=== PATIENT | female | born 1950 | race American Indian/Alaskan Native ===

== ENCOUNTER 2016-10-27 15:48 | Inpatient (IN) | payer MEDICARE, OTHER ==
[~2016-10-27] VITALS: Ht 162.6 cm; Wt 104.3 kg
[~2016-10-27 15:48] MED LIST: CAL-CITRATE PL1 EACH PO; DIALYVITE V5000 UNIT PO; FLONASE2 SPRAY NS; GLUCOPHAGE500 MG PO; IBUPROFEN800 MG PO; KEFLEX500 MG PO; LISINOPRIL10 MG PO; LORATADINE10 MG PO; METFORMIN HCL500 MG PO; NORCO 5-325 TA1 EACH PO; OMEPRAZOLE20 MG PO; OXYCODONE HCL5 MG PO; PYRIDIUM200 MG PO; SALSALATE750 MG PO; SIMVASTATIN10 MG PO; VALIUM5 MG PO
[2016-11-02] MEDS ORDERED: MULTIVITAMINS1 EAC7 PO (16:10)
[2016-11-02] MEDS ORDERED: LISINOPRIL20 MG PO (16:10)
--- NOTE | 2016-11-06 17:37 | NUR ---
PREADMIT PT CARE NOTE THIS IS A 66 YEAR OLD FEMALE PT SCHEDULED FOR A LEFT TOTAL KNEE ON 11/16/[address] MARYJO TRAVIS. PT STATES SHE LIVES IN AN UPSTAIRS APARTMENT WITH A FULL FLIGHT OF STAIRS TO GO INTO HOME. SHE LIVES WITH HER SON. STATES SHE HAS A TUB/SHOWER COMBINATION WITH A SHOWER SEAT. ALSO STATES SHE DOES NOT HAVE A FRONT WHEELED WALKER AND WOULD LIKE US TO OBTAIN ONE FOR HER WHILE SHE IS HERE. SHE HAS ALREADY MET WITH OP PT AT [facility] AND HAS AN APPT FOR WHEN SHE IS HOME FROM THE HOSPITAL ALREADY. DENIES FURTHER QUESTIONS. WILL FOLLOW PT WHILE SHE IS IN THE HOSPITAL. SYLVIA BOY'S ADVISER PLANNING CASE MANAGEMENT
[2016-11-16] MEDS ORDERED: OXYBUTYNIN CHLOR5 MG PO (06:05)
[2016-11-16] MEDS ORDERED: CEPHALEXIN250 MG PO (06:07)
--- NOTE | 2016-11-16 08:54 | NUR ---
11/16/16 0854 [facility],[place] O2 DECREASED TO 6L.
--- NOTE | 2016-11-16 09:45 | NUR ---
PATIENT TO FLOOR VIA HOSPITAL BED. REPORT RECEIVED FROM PACU NURSE SUNDEEP. PATIENT DENIED PAIN AND NAUSEA. REPORT NUMBNESS AND TINGLING IN THE LOWER EXTREMITIES. MEPILEX AND TERELL WRAP DRESSING ON LEFT KNEE D/C/I. CRYO CUFF ON. CELI HOSE, SCD AND HEEL PROTECTOR ON. VS TAKEN AND WNL. IV SITE PATENT AND NO SIGNS OF INFILTRATION. FLUID INFUSING WELL. PATIENT ORIENTED TO ROOM, CALL LIGHT AND PERSONAL BELONGINGS WITHIN PATIENT REACH. PULSE OX IN PLACE. WILL CONTINUE TO MONITOR.
--- NOTE | 2016-11-16 10:32 | NUR ---
PATIENT RESTING IN BED. NO COMPLAINT AT THIS TIME. REPORTED BEING DROWZY AND SLEEPY. DRESSING ON LEFT KNEE D/C/I.
[2016-11-16] MEDS ORDERED: OXYBUTYNIN CHLOR5 M1 PO (10:48)
--- NOTE | 2016-11-16 11:50 | NUR ---
PATIENT RESTING IN BED DENIES PAIN AT THIS TIME. TOLERATED CLEAR LIQUID WELL. DENIES TINGLING AND NUMBNESS SENSATION IN THE LOWER EXTREMITIES AT THIS TIME. WILL CONTINUE TO MONITOR. VS WNL.
--- NOTE | 2016-11-16 12:55 | NUR ---
PATIENT WAS UP WITH PHYSICAL THERAPIST. WALKED TO BATHROOM AND BACK TO BED WITH NO DIFFICULTY. PATIENT REPORTS NAUSEA AND SHE WAS MEDICATED. PATIENT DENIES ANY PAIN AT THIS TIME. DRESSING DRY AND CLEAN. FULL SENSATION RETURN ON LOWER EXTREMITIES. PATIENT VOIDED. HAD SOME JUICE, JELLO AND BROTH. TOLERATED THAT WELL. WILL CONTINUE TO MONITOR.
--- NOTE | 2016-11-16 13:15 | NUR ---
PATIENT RESTING IN BED DENIED PAIN, NAUSEA. PATIENT REPORTED THAT SHE IS ABLE TO FEEL HER LOWER EXTREMITIES. FULL SENSATION. ON 2L O2 VIA NC. NO APPARENT DISTRESS.
--- NOTE | 2016-11-16 15:04 | NUR ---
INTRODUCED TO NURSE, TAKING OVER CARE OF PATIENT FOR THE REST OF SHIFT. PATIENT DENIES PAIN, DENIES NAUSEA. LEFT KNEE DRESSING IS CDI, ICE FILLED IN KRYO CUFF. ANCEF AND TORADOL GIVEN. PATIENT ENDORSES ITCHING AND NUBAIN 10MG GIVEN SUB Q. SOUP ORDERED FOR PATIENT FOR DINNER.
--- NOTE | 2016-11-16 15:23 | NUR ---
Medications reconciled by pharmacist using pharmacy records and through patient interview
--- NOTE | 2016-11-16 18:33 | NUR ---
PATIENT HAS DONE WELL TODAY, AMBULATED WITH P.T. AND VOIDED. LATER THIS AFTERNOON, NOTED THAT PATIENT WAS JUAN TO 39. STAT EKG DONE, PATIENT PLACED ON TELE #1. IVF CONTINUED. PATIENT HAS VARIABLE PULSE FROM [address] TRAVIS NOTIFIED.
--- NOTE | 2016-11-16 19:13 | NUR ---
CALL TO DR. TRAVIS TO LET HIM KNOW THAT PATIENT IS BRADYCARDIC, ON TELE, IVF CONTINUED.
--- NOTE | 2016-11-16 20:20 | NUR ---
IN TO CHECK ON PT, PT SLEEPING. AWAKES TO VOICE AND TOUCH. ASSESSMENT DONE. CMS INTACT. TEDS, CRYO, SCDS IN PLACE. DRSG CLEAN DRY AND INTACT. NO SHADOWING NOTED. PT C/O CONTINUED ITCHING AROUND UMBILICUS AND ON LEGS. PT REQUEST MEDICATION. DR. COTTER NOTIFIED. NEW MEDICATION ORDER GIVEN. FRESH ICE WATER AND ORANGE JUICE GIVEN. NO FURTHER NEEDS, CALL LIGHT WITHIN REACH.
--- NOTE | 2016-11-16 21:09 | EKG ---
[facility] [address] [facility] [place], [place] [address] Signed Marked sinus bradycardia Left axis deviation Low voltage QRS T wave abnormality, consider lateral ischemia Abnormal ECG No previous ECGs available Confirmed by MEDINA OLGUIN MD ([id number]) on 11/16/2016 9:09:11 PM Electronically Signed By: MEDINA OLGUIN MD 11/16/16 2109 PATIENT NAME: ABDIRASHID DICK Electrocardiogram DATE OF : 46 PHYSICIAN: MEDINA OLGUIN MD REPORT #: [id number] REPORT IS CONFIDENTIAL AND NOT TO BE RELEASED WITHOUT AUTHORIZATION
--- NOTE | 2016-11-16 22:30 | NUR ---
IN TO CHECK ON PT, AWAKE, ALERT AND PLEASENT. PT RATES HER PAIN A 0/10 PAIN. PT UP TO [facility] WITH WALKER AND 2 PERSON ASSIST. EDUCATED PT ON LIMITING BENDING/MOVEMENT OF L KNEE TO PRVENT INCREASED PAIN. PT ASSISTED BACK TO BED. CRYO, SCDS,TEDS AND HEEL PROTECTORS IN PLACE. FRESH WATER GIVEN. CALL LIGHT WITHIN REACH.
--- NOTE | 2016-11-16 23:42 | NUR ---
IN TO PT'S ROOM TO START ABX. PT RATES PAIN A 0/10, BUT STATES SHE IS "STARTING TO FEEL HER LEG". PT SLEEPING , BUT WAKES TO VOICE. DRSG CLEAN, DRY AND INTACT. PT STATES THAT THE ITCHING "IS MUCH BETTER". DENIES NAUSEA. SCDS,CRYO,TEDS AND HEEL PROTECTORS IN PLACE. WATER AND CALL LIGHT WITHIN REACH.
--- NOTE | 2016-11-17 02:52 | NUR ---
IN TO CHANGE IVF, PT SLEEPING. AWAKENS TO SOUND. PT RATES HER PAIN OF 0/10. DENIES NAUSEA. NO FURTHER NEEDS. CRYO, TEDS, SCDS AND HEEL PROTECTORS IN PLACE. CALL LIGHT WITHIN REACH.
--- NOTE | 2016-11-17 03:27 | NUR ---
IN TO CHECK ON PT, CONT PULSE OX REPLACED. PT SLEEPING, EASILY AWAKENS TO VOICE. PT CURRENTLY RATES HER PAIN 1/10 IN HER L THIGH. DISCUSSED LAST SCHEDULE MEDICATION GIVEN AT 0200, WILL REASSESS AT 0400 PAIN AND GIVE PRN IF PAIN CONTINUES. PT AGREES. CRYO, TEDS, SCDS AND HEEL PROTECTORS IN PLACE. WATER AND CALL LIGHT WITHIN REACH.
--- NOTE | 2016-11-17 03:44 | NUR ---
PT UP TO [facility] WITH 2 PERSON ASSIST AND WALKER. PT AWAKE AND ALERT. TRANSFER WELL. ASSITED BACK TO BED. O2, TELE AND PULSE OX IN PLACE. IS DONE X 10 IN THE PRESENTS OF RN. PT TOLERATED WELL. O2 NOTED TO BE DOWN TO 88% WHEN BACK FROM BSC. O2 INCREASED TO 3L. CRYO CUFF REFILL. SCDS, TEDS AND HEEL PROTECTORS IN PLACE. CALL LIGHT WITHIN REACH.
--- NOTE | 2016-11-17 03:59 | NUR ---
DR. OLGUIN NOTIFIED OF BRADYCARDIA DOWN TO 34 AND O2 SAT DOWN TO 88 ON 2L. ADVISED THAT PT WAS UP TO B[facility], HR UP TO 69-70. PT ASYMPTOMATIC. NO NEW ORDERS GIVEN. WILL CONTINUE TO MONITOR PT.
--- NOTE | 2016-11-17 04:04 | NUR ---
PT NOTED TO BE IMPULSIVE WITH MOVEMENT OF POST OPERATIVE LEG. PT EDUCATED SEVERAL TIMES DURING THE SHIFT TO MAKE SURE TO SLOW DOWN AND ALLOW STAFF TO ASSIST WITH MOVEMENT OF OPERATIVE LIMB TO HELP DECREASE POST OPERATIVE PAIN IN THE FUTURE. PT UNDERSTANDS TEACHING AND FOLLOWS DIRECTION APPROPRIATLY. CONTINUE TO REINFORCE.
--- NOTE | 2016-11-17 04:38 | NUR ---
PT HAS RESTED WELL THROUGHOUT THE SHIFT. AWAKENS TO VOICE. PT IS ALERT, ORIENTED AND PLEASANT. HAS RATED PAIN A 0-1/10 THROUGHOUT SHIFT. SCHEDULED OXYCODONE AND TORADOL GIVEN. PT HAS BEEN BRADYCARDIC THROUGHOUT THE SHIFT, OCCASSIONLY DOWN TO THE LOW 30'S. PT ON TELE 1 WITH CONTINOUS PULSE OX. O2 DESATURATION DOWN TO 88 %, O2 INCREASED TO 3L. PT WOKE AND ASSISTED UP TO BSC. PULSE AND O2 RECOVERED, DR. OLGUIN NOTIFIED. IV INFUSING. IS AT BEDSIDE. CRYO, TEDS, SCDS AND HEEL PROTECTORS IN PLACE. PT TOLERATING CLEAR LIQUID DIET WITH NO NAUSEA.
--- NOTE | 2016-11-17 05:46 | NUR ---
CALL TO DR. TRAVIS TO UPDATE ON SHIFT. NOTIFIED THAT PULSE HAS BEEN LOW 30'S-40'S. NOTIFIED OF DESATURATION AND O2 CURRENTLY AT 3L. ADVISED THAT DR. OLGUIN WAS NOTIFIED AND NO NEW ORDERS WERE GIVEN.
--- NOTE | 2016-11-17 07:56 | NUR ---
MORNING ASSESSMENT AND SCHEDULED MEDICATIONS GIVEN. PATIENT CONTINUES TO DENY PAIN IN LEFT LEG. PATIENT HAS GOOD APPETITE AND IS SITTING UP TO EAT BREAKFAST. O2 AT 3L FOR 93%, EX WHEEZE NOTED IN LLL. LEFT KNEE DRESSING IS CDI, CMS INTACT. CRYO CUFF HAS FRESH ICE. IVF CONTINUED, PENDING HEART RATE/BP REVIEW WITH PHYSICIAN.
--- NOTE | 2016-11-17 08:34 | OR ---
[facility] [address] [place], [place] [address] Signed DATE OF PROCEDURE: 11/16/16 PREOPERATIVE DIAGNOSIS: Degenerative joint disease, left knee. POSTOPERATIVE DIAGNOSIS: Degenerative joint disease, left knee. PROCEDURE PERFORMED: Left total knee arthroplasty with computer navigations. MARKETING PROJECT SPECIALIST Prudence Brasher PA-C and CHIKA Copeland. Prudence was present for the entire procedure and was necessary in critical positioning, retraction, wound closure, and dressing application. ANESTHESIA: Spinal. BLOOD LOSS: Minimal. TOURNIQUET TIME: 60 minutes. IMPLANTS Nathanael triathlon size 5 and a 13 mm polyethylene, 35 mm patella. BRIEF HISTORY Chelo is a 66-year-old female with progressive worsening of her arthritis. We tried nonoperative treatment without substantial relief. She wished to proceed with total k nee. Risks and benefits of operative treatment discussed with her and she elected to proceed. DESCRIPTION OF PROCEDURE Once consent was obtained, she was taken to the operating room. After adequate anesthesia, she was placed on operating room table. All d ownside pressure points well padded. A well-padded proximal thigh tourniquet was placed and a hip bump was placed. The leg was prepped and draped in standard sterile fashion, exsanguinated using Esmarch bandage. Tourniquet inflated to 250 mmHg. Standard a n terior approach through curved incision was taken through skin and subcutaneous tissue. Median parapatellar arthrotomy was performed. The infrapatellar fat pad was excised and the insoles of a sleeve around the posterior medial corner. The knee was flexed. The anterior edge of the meniscus were transected as was the ACL. The PCL was intact. The navigation guide was pinned to the distal femur and the femur was registered with the computer. The distal femoral cutting guide was then pinned in neutral alignment and the distal femoral cut was made. The distal femur was sized to a 5. The AP cutting block was pinned in neutral alignment Electronically Signed By: CIERRA TUCKER MD 11/17/16 0834 PATIENT NAME: CHELO DICK OPERATIVE REPORT DATE OF : 46 PHYSICIAN: CIERRA TUCKER MD REPORT #: [id number] REPORT IS CONFIDENTIAL AND NOT TO BE RELEASED WITHOUT AUTHORIZATION [facility] [address] [place], [place] [address] Signed with epicondylar axis. The anterior, posterior, and chamfer cuts were made. The osteophytes were removed. The attention was then turned to the tibia and the navigation guide was pinned. The proximal tibia and the tibia was registered with the computer. The cutting block was then pinned in neutral alignment once again and the cut was made with care taken to protect the patellar tendon and MCL. Bone was excised as well as any meniscal remnants. Posterior release was performed and posterior osteophytes were removed off the femur. The flexion-extension gaps were sized and found to be symmetric at 13 mm. The trials were positioned. She was taken through range of motion and found to be stable. The patella was cut sized and drilled for 35 patella. The femoral lug holes were drilled and the trials were removed. Proximal tibia was finished using the keel punch. The bone surfaces were pulse lavaged, packed with a dry Ray-Gabby. The cement was mixed. When it reached proper consistency, placed all implants on all bone surfaces. Tibia was impacted into position first and followed by polyethylene. All excess cement was removed. The femur was impacted, and again all excess cement was removed. The knee was extended and nicely loaded. Patella was clamped, and the remaining cement was removed. The knee was pulse lavaged at intervals. A total of 3 L of antibiotic irrigation was used. The periarticular soft tissues were injected with 100 mL ropivacaine and Toradol mixture. The arthrotomy was then closed using combination of #1 Vicryl and #1 Stratafix, subcutaneous tissue with 0 Stratafix, skin with 2-0 Quill and Dermabond mesh. She tolerated the procedure well. All sponge, needle, instrument counts were correct. The knee was dressed with a Mepilex Ag dressing, ABD and Erick wrap. She was awakened and taken to recovery in satisfactory condition. All sponge, needle, and instrument counts were correct. Cierra Tucker MD BA/Modl /[id number] cc: MIAH Del Toro Electronically Signed By: CIERRA TUCKER MD 11/17/16 0834 PATIENT NAME: CHELO DICK OPERATIVE REPORT DATE OF : 46 PHYSICIAN: CIERRA TUCKER MD REPORT #: [id number] REPORT IS CONFIDENTIAL AND NOT TO BE RELEASED WITHOUT AUTHORIZATION
--- NOTE | 2016-11-17 09:29 | NUR ---
PT UP TO CHAIR WITH PROFESSIONAL ENGINEER AND FWW. PT DENIES PAIN. DRINKING MIRALAX IN APPLE JUICE. TLE #1 HR 47. DENIES SOB OR DIZZINESS WHEN STANDING. TURNED O2 DOWN TO 1L AND INSTRUCTED TO CALL IF SYMPTOMATIC.
--- NOTE | 2016-11-17 11:10 | NUR ---
PT UP TO THE RESTROOM WITH 1 ASSIST AND FWW. PT TOLERATING WELL, BUT IS QUICK TO MOVE AND KIND OF IMPULSIVE. EDUCATED PT ON STAYING CLOSE TO THE WALKER AND NOT MOVING TOO QUICKLY.
--- NOTE | 2016-11-17 12:18 | NUR ---
PT OFF FLOOR TO CT WITH REAL ESTATE TEACHER.
--- NOTE | 2016-11-17 13:17 | NUR ---
PT UP TO THE RESTROOM WITH ONE PERSON AND FWW. TOLERATING WELL. STARTING TO FEEL SOME DISCOMFORT IN UPPER THIGH.
--- NOTE | 2016-11-17 14:05 | NUR ---
PT EXPRESSED SOME PAIN CONTROL ISSUES. LUNCH DELIVERED, BUT NOT MUCH EATEN. FAMILY PRESENT. PT EXPRESSED CONCERN ABOUT GETTING HM FOLLOWING DC. STREET IS TORN UP, AND SIDEWALK GONE. I TOLD HER I WOULD PASS ALONG TO [facility] WHICH I DID. SHE THANKED ME, WILL CONTINUE TO FOLLOW
--- NOTE | 2016-11-17 15:15 | NUR ---
OXYGEN SATS ARE 87% ON ROOM AIR, PLACED ON 2L OXYGEN AND SATS ARE 95%
--- NOTE | 2016-11-17 16:06 | NUR ---
PT UP TO THE RESTROOM. AMBULATES WELL ADN STATES SHE DID STAIRS AND BIKE FOR PHYS. THER. THIS AFTERNNOON. TOLERATED WELL AND RATES PAIN 2\10
--- NOTE | 2016-11-17 18:42 | NUR ---
Refilled Cryo and water glass.
--- NOTE | 2016-11-17 19:22 | NUR ---
REPORT RECV'D FROM WILSON ROSEN. PT ALERT, ORIENTED AND PLEASANT. PT ASSISTED UP TO BATHROOM. ASSESSMENT DONE. PT RATES PAIN A 2/10. IV SL, TELE, CONT PULSE OX AND O2 IN PLACE. CRYO, SCDS, TEDS AND HEEL PROTECTORS IN PLACE.
--- NOTE | 2016-11-17 21:20 | NUR ---
IN TO CHECK ON PT, PT AWAKE, ALERT. JUST HAD VISITING FAMILY. PT RATES HER PAIN A 0/10. PT STATES THAT "IT MADE ME A LITTLE NAUSEATED". OFFERED CRACKERS, WATER OR MEDICATION FOR NAUSEA. PT DECLINED, "WOULD LIKE TO SEE IF IT PASSES". WATER AND CALL LIGHT WITHIN REACH. CRYO, SCDS, TEDS AND HEEL PROTECTORS IN PLACE.
--- NOTE | 2016-11-17 22:54 | NUR ---
PT HAS BEEN UP SEVERAL TIMES USING THE RESTROOM TO VOID. VOIDING APPROX 250MLS EVERY TIME. PT COMPLAINS OF 3/10 IN LEFT THIGH AREA, GAVE DILAUDID PRN FOR PAIN. PT ALSO COMPLAINED OF FEELING "A LITTLE NAUSEOUS," GAVE ZOFRAN PRN FOR NAUSEA. ALSO GAVE PT SOME SALTINE CRACKER PER REQUEST. FRESH ICE WATER AT BEDSIDE. NO FURTHER NEEDS. CALL LIGHT IN REACH. WILL MONITOR CLOSELY.
--- NOTE | 2016-11-18 00:38 | NUR ---
ASSISTED PT UP TO BSC WITH WALKER. PT AWAKE AND ALERT. DENIES NAUSEA. RATE PAIN A 5/10 WHEN UP TO THE BSC. PT REPOSITIONED IN BED FOR COMFORT. DRSG CLEAN DRY AND INTACT. SCDS, TEDS, CRYO AND HEEL PROTECTORS IN PLACE. WILL CONTINUE TO MONITOR PAIN. CALL LIGHT WITHIN REACH.
--- NOTE | 2016-11-18 01:41 | NUR ---
IN TO ROOM TO GIVE SCHEDULE PAIN MEDICATION. PT SLEEPING, AWAKES EASILY TO VOICE. PT RATES PAIN 4/10. SCHEDULED MEDICATION GIVEN. IS AND FRESH WATER AT BEDSIDE. CRYO CUFF, TEDS, SCDS AND HEEL PROTECTORS IN PLACE. CALL LIGHT WITHIN REACH.
--- NOTE | 2016-11-18 02:06 | NUR ---
pt up to bathroom to void. pt denies nausea. rates pain at 3/10, states "its gone down now." pt back in bed. scd's and cryo cuff in place. no further needs. call light in reach.
--- NOTE | 2016-11-18 04:25 | NUR ---
PT HAS BEEN UP SEVERAL TIMES THROUGH OUT THE SHIFT TO THE BATHROOM. PT C/O OF PAIN UP TO A 5/10. SCHEDULED AND PRN PAIN MEDICATION GIVEN. PT TRANSFERS WELL AND IS A 1 PERSON ASSIST WITH WALKER. VARIABLE HR NOTED, LOW 40'S- LOW 50'S. PT DENIES SHORTNESS OF BREATH OR CHEST PAIN WITH EXERTION. PT HAS HAD 1 BOUGHT OF NAUSEA, PRN MEDICATION GIVEN. IVF SL. DRSG CLEAN, DRY AND INTACT. DR. TRAVIS PROTOCOL IN PLACE.
--- NOTE | 2016-11-18 04:31 | NUR ---
PT WOKE WHEN RN CHANGING TELE BATTERY. COMPLAINED OF 3-4/10 PAIN, GAVE DILAUDID PRN FOR PAIN. PT HAS NO FURTHER NEEDS. CALL LIGHT IN REACH.
--- NOTE | 2016-11-18 05:21 | NUR ---
PT UP TO BSC, TOLERATED TRANSFER WELL. PT REPORTS 5/10 PAIN, STATES "BRIAN BEEN UP AND DOWN SO MUCH TONIGHT, I THINK I JUST MADE IT TIRED. PT BACK IN BED. CRYO CUFF FILLED WITH ICE AND IN PLACE ALONG WITH TEDS, SCD'S, AND HEEL PROTECTORS. GAVE FRESH ICE WATER AND TWO WARM BLANKETS. PT HAS NO FURTHER NEEDS. CALL LIGHT IN REACH.
--- NOTE | 2016-11-18 06:02 | NUR ---
PT LAYING IN BED, RESTING QUIETLY. PT RATES PAIN AT 2/10 AT THE MOMENT, STATES "ITS STARTING TO KICK IN NOW, ITS ABOUT A 2." VITALS TAKEN. PT HAS NO FURTHER NEEDS. CALL LIGHT IN REACH.
--- NOTE | 2016-11-18 06:47 | NUR ---
pt appears to be sleeping. rr wnl and unlabored.
--- NOTE | 2016-11-18 07:05 | NUR ---
REPORT RECIEVED FROM JESSIKA AGUILERA. PT ASLEEP.
--- NOTE | 2016-11-18 07:46 | NUR ---
PT UP TO RESTROOM. AMBULATES WELL WITH FWW. PASSING GAS AFTER DIAHRREA LAST NIGHT. PT EATING BREAKFAST. PT ENCOURAGED TO DEEP BREATHE AND COUGH, SLIGHT CRACKLES IN BASES. DRESSING CDI
--- NOTE | 2016-11-18 09:42 | NUR ---
SPOKE WITH PATIENT IN ROOM 115. PATIENT AWAKE, WATCHING TV. PT STATES SHE IS WORRIED ABOUT GOING HOME, SHE HAS A NEW BED BUT THE ROAD AND AREA AROUND HER HOME IS TORE UP IN CONSTRUCTION. HER BED CANNOT BE DELIVERED RIGHT NOW. THE GROUND IS NOT LEVEL OR ABLE TO USE WALKER OR WHEELCHAIR AT THIS TIME. SHE STATES SHE HAS BEEN TALKING TO A NEICE ABOUT STAYING THERE, BUT THE NEICE DOES NOT HAVE A EMPTY BEDROOM FOR HER AT THIS TIME. WE DISCUSSED GOING TO A REHAB CENTER OR STAYING SWING BED AT HOSPITAL UNTIL SHE IS MORE ABLE TO NAVIGATE HER HOME SITUATION SAFELY. SHE IS IN AGREEMENT THAT IT IS A HIGH RISK FOR FALLING AT THIS TIME WITH HER MOBILITY ISSUE. PATIENT WOULD LIKE TO STAY TRANSITIONAL BED HERE PREFERABLY. DISCUSSED THE PROGRAM, SUCH HER PARTICIPATION EACH DAY, BRINGING IN HER OWN CLOTHES, SHOES, ETC., TO DRESS AND DO OWN ADL'S MUCH POSSIBLE. SHE STATES UNDERSTANDING. WILL UPDATE STAFF ON THIS. SPOKE WITH DR OLGUIN AND NURSING REGARDING PATIENT PROBABLE STAY TRANSITIONAL BED FOR REHAB AT DISCHARGE FROM ACUTE NEEDS.
--- NOTE | 2016-11-18 09:51 | NUR ---
PT NOW WORKING WITH PHYS. THER.
--- NOTE | 2016-11-18 11:30 | NUR ---
CLINICALS/RX SENT TO [facility]HOME [facility] FOR WALKER.
--- NOTE | 2016-11-18 12:08 | NUR ---
PT REPORTS HER HEMMOROID IS BLEEDING. DR OLGUIN ORDERED CREAM PRN.
--- NOTE | 2016-11-18 12:19 | NUR ---
PT RESTING IN BED, ALERT AND ORIENTED. SHE MENTIONED THAT SHE IS NOW SWING BED STATUS, WHICH SOLVES HER HOUSING DILEMA WITH ROAD CONST ON HER STREET MAKING VERY DIFFICULT TO GET TO HER HOME. SHE EXPRESSED THAT SHE WAS IN SOME PAIN, I PASSED THIS ON TO THE NURSING STAFF. THEY WILL FOLLOW. SHE STILL WASN'T QUITE SURE ABOUT SWING BED, DISCUSSED THIS WITH HER, AND WILL CONTINUE TO FOLLOW
--- NOTE | 2016-11-18 13:44 | NUR ---
PT PLACED BACK ON 3L NC WHILE SLEEPING FOR DESATS. ADMINISTERED SCHED. MEDS. PAIN 08/26. DENIES SOB OR CHEST PAIN. STATES SHE IS JUST SLEEPING.
--- NOTE | 2016-11-18 15:19 | NUR ---
PT IN [place] WALKING WITH PHYS. THER. TOLERATING WELL. STATES SHE DOES NOT NEED AN ADDITIONAL PAIN PILL
--- NOTE | 2016-11-18 17:45 | NUR ---
PT HR REMAINED LOW TODAY 40-55. REQUIRED O2 ONLY WHEN SLEEPING. FINE CRACKLES IN BASES. SL. AMBULATED IN [place] WITH PHYS. THER. NO APPETITE, ZOFRAN X1. DRESSING CDI. UO QS.
--- NOTE | 2016-11-18 18:59 | EKG ---
[facility] [address] [facility] [place] [address] Signed Marked sinus bradycardia with sinus arrhythmia Left axis deviation Low voltage QRS Cannot rule out Anterior infarct , age undetermined Abnormal ECG When compared with ECG of 16-NOV-2016 17:49, Nonspecific T wave abnormality has replaced inverted T waves in Anterior leads Confirmed by MEDINA OLGUIN MD ([id number]) on 11/18/2016 6:58:57 PM Electronically Signed By: MEDINA OLGUIN MD 11/18/16 1859 PATIENT NAME: ABDIRASHID DICK Electrocardiogram DATE OF : 46 PHYSICIAN: MEDINA OLGUIN MD REPORT #: [id number] REPORT IS CONFIDENTIAL AND NOT TO BE RELEASED WITHOUT AUTHORIZATION
--- NOTE | 2016-11-18 19:15 | NUR ---
RECEIVED REPORT FROM DAY SHIFT RN. PATIENT IS RESTING IN BED VISITING WITH FAMILY. PATIENT DENIES ANY PAIN. PATIENT IS WEARING SCDS, TEDHOSE, AND HEEL PROTECTORS. CRYO APPLIED TO RIGHT KNEE. PATIENT DENIES ANY NEEDS AT THIS TIME. CALL LIGHT IN REACH.
--- NOTE | 2016-11-18 20:41 | NUR ---
PATIENT ASSESMENT COMPLETED AND RECORDED. PATIENTS VITALS TAKEN AND RECORDED. PATIENT ASSISTED TO THE RESTROOM. PATIENT IS A SBA W/FWW. PATIENT IS STEADY ON HER FEET. PATIENT WAS ABLE TO ELIMINATE AND URINE OUTPUT IS QS. PATIENT IS NOW BACK IN BED. PATIENT HAS TEDHOSE ON BOTH LOWER EXTRMETIES. PATIENT IS ALSO WEARING SCDS, AND HEEL PROTECTORS. PATIENT HAS CRYO APPLIED TO LEFT KNEE. CRYO REFILLED W/ICE PER DIRECTIONS. PATIENT RATES PAIN AT A 5/10. PATIENT STATED "IT ONLY HURTS WHEN I AM UP MOVING, WHEN I AM IN BED IT DOESNT HURT" PATIENT GIVEN SCHEDULED PAIN MEDICATION. PATIENT DENIES THE NEED FOR ANY FURTHER [AIN MEDICATIONS. PATIENT IS ON A REG DIET AND HAS STRUGGLED WITH NAUSEA. PATIENT DENIES ANY NAUSEA AT THIS TIME. PATIENT IS AAO X3 AND USES CALL LIGHT APPROPRIATELY. PATIENT DENIES ANY FURTEHR NEEDS AT THIS TIME. CALL LIGHT IS WITHIN REACH. AND FAMILY IS AT BEDSIDE.
--- NOTE | 2016-11-18 22:02 | NUR ---
PATIENT ASSITED TO THE RESTROOM. PATIENT IS A SBA W/FWW. PATIENT TOLERATED AMBULATION WELL. PATIENT IS NOW BACK IN BED RESTING. PATIENT CONTINUES TO HAVE ON SCDS, TESHOSE, HEEL PROTECTORS, AND CRYO APPLIED TO LEFT KNEE. PATIENT RATES PAIN AT A 3/10. PATIETN DENIES THE NEED FOR PAIN MEDICATION. PATIENT DENIES ANY FURTHER NEEDS CALL LIGHT IN REACH.
--- NOTE | 2016-11-18 23:29 | NUR ---
PATIENT ASSISTED TO THE RESTROOM. PATIENT IS A SBA W/FWW. PATIENT TOLERATED AMBULATION WELL AND IS STEADY ON HER FEET. PATIENT IS BACK IN BED RESTING. PATIENT RATES PAIN AT A 4/10 AND DENIES THE NEED FOR PAIN MEDICATION AT THIS TIME. PATIENT DENIES ANY FURTHER NEEDS AT THIS TIME. CALL LIGTH IS WITHIN REACH.
--- NOTE | 2016-11-19 01:07 | NUR ---
PATIENT ASSISTED TO THE RESTROOM. PATIENT IS A SBA W/FWW. PATIENT IS STEADY ON HER FEET AND TOELRATES AMBULATION WELL. PATIENT IS NOW BACK IN BED RESTING. PATIENT RATES PAIN AT A 3/10 AND DENIES THE NEED FOR ANY PAIN MEDICATION AT THIS TIME. CALL LIGHT IN REACH.
--- NOTE | 2016-11-19 02:37 | NUR ---
PATIENTS 0200 SCHEDULED PAIN MEDICATIONS GIVEN PER ORDER. PATIENT RATES PAIN AT A 3/10. PATIENT DENIES ANY NEED FO FURTHER PAIN MEDICATION. PATIENTS CRYO REFILLED WITH ICE PER DIRECTIONS. PATIENT DENIES ANY FURTHER NEEDS CALL LIGHT IS WITHIN REACH.
--- NOTE | 2016-11-19 04:45 | NUR ---
PATIENT ASSISTED TO THE RESTROOM. PATIENT IS A SBA AND IS STEADY ON HER FEET. PATIENT IS NOW BACK IN BED RESTING. PATIENT DENIES ANY PAIN AT THIS TIME. PATIENTS CRYO HAS SUFFICIENT ICE IN IT. PATIENT DENIES ANY FURTHER NEEDS CALL LIGHT IN REACH.
--- NOTE | 2016-11-19 05:35 | NUR ---
PATIENT RESTED WELL THROUGHOUT THE SHIFT. PATIENT DID NOT REQUIRE ANY PRN PAIN MEDICATION ONLY SHCEDULED PAIN MEDICATION. PATIENT DENIED ANY NAUSEA. PATIENT IS A SBA W/FWW AND IS STEADY ON HER FEET. PATIENT IS SL. PATIENT HAS ON BOTH LEGS TEDHOSE, SCDS, AND HEEL PROTECTORS. PATIENT HAS CRYO APPLIED TO LEFT KNEE. PATIENT HAS MEPLX AND OPSITE ON LEFT KNEE. DRESSING IS C/D/I WITH NO SHADOWING PRESENT. PATIENT IS NO TELE #1 AND HAS BEEN SINUS JUAN W/HR IN THE LOW 50'S. PATIENT IS ALSO ON A PULSE OX THAT IS MONITORED THROUGH TELE #1. PATIENT HAS BEEN ON 3L VIA NC WHILE ASLEEP. PATIENT IS AAO X3 AND USES CALL LIGHT APPROPRIATELY. PATIENTS URINE OPUTPUT IS QS.
--- NOTE | 2016-11-19 06:39 | NUR ---
PATIENTS VITALS TAKEN AND RECORDED. PATIENTS INTAKE AND OUTPUT RECORDED. PATIENT DENIES ANY PAIN OR NAUSEA AT THIS TIME. PATIENT CONTINUES TO WEAR SCDS AND TEDHOSE. PATIENT REQUESTED TO HAVE HEEL PROTECTORS REMOVED SHE FELT "TO HOT" WITH THEM ON. PATIENTS CRYO REFILLED WITH ICE PER DIRECTIONS. PATIENT CONTINUE TO WEAR 3L VIA NC. PATIENT REMAINS ON TELE #1 AND IS SINUS JUAN W/HR OF 54. PATIENTS DRESSING ON LEFT KNEE REAMINS CLEAN DRY AND INTACT. PATIENT AAOX3. CALL LIGHT IN REACH.
[2016-11-19] MEDS ORDERED: OXYCODONE HCL5 MG PO (07:29)
[2016-11-19] MEDS ORDERED: DOCUSATE SODIU250 MG PO (07:29)
[2016-11-19] MEDS ORDERED: HYDROMORPHONE HC4 MG PO (07:29)
[2016-11-19] MEDS ORDERED: MIRALAX17 GM PO (07:29)
[2016-11-19] MEDS ORDERED: ONDANSETRON HCL4 MG PO (07:29)
--- NOTE | 2016-11-19 07:37 | NUR ---
BEDSIDE REPORT RECEIVED FROM ETHEL ROSEN AT 0710. PT SLEEPING NOW. TELE [address] TRAVIS IN TO SEE PT THIS MORNING. STATES HE WILL BE SENDING HER HOME. DR TRAVIS REQUESTED DRESSING TO BE TAKEN OFF AND LEFT OPEN TO AIR.
--- NOTE | 2016-11-19 07:47 | NUR ---
PATIENT UP TO THE BATHROOM WITH HER FWW, PATIENT IS STEADY ON HER FEET, VOIDED 300MLS OF CLEAR YELLOW URINE, FACE AND HANDS WASHED AND ORAL CARE DONE. PATIENT BACK TO BED, SCD'S BACK ON AND CRYO CUFF ON. BREAKFAST SET UP FOR HER AND WATER REFILLED.
--- NOTE | 2016-11-19 10:15 | NUR ---
SBA to bathroom with walker. tolerates well. reports pain 3/10 when moving. set up pt for shower. when pt finished she will call for assistance to get dressed. son will be here to pick patient up this morning.
--- NOTE | 2016-11-19 11:56 | NUR ---
PT WAITING FOR HER RIDE, SHE IS TO BE DC'D TODAY. SHE SAID SHE FELT PRETTY GOOD, AND HOPES SHE DOESN'T HAVE ANY TROUBLE WITH THE STAIRS AT HOME. SHE THANKED ME FOR COMING BY, EXTENDED A BLESSING TO HER.
--- NOTE | 2016-11-20 07:23 | DS ---
[facility] [address] [place], [place] [address] Signed ADMIT DATE: 11/16/2016 DISCHARGE DATE: 11/19/2016 ADMISSION DIAGNOSIS: DJD left knee. DISCHARGE DIAGNOSIS: DJD left knee. PROCEDURE PERFORMED: Left total knee arthroplasty. BRIEF HISTORY: Chelo is a 66-year-old female, with progressive worsening osteoarthritis in her knee. She had undergone nonoperative treatment without substantial success. Risks and benefits of operative treatment were discussed with her. She elected to proceed. DESCRIPTION OF PROCEDURE: Once consent was obtained, she was taken to the operating room. After adequate anesthesia, she underwent the above-named procedure. She tolerated this well and was taken recovery room and subsequently to the orthopedic floor. In the initial postoperative period, she was noted to be substantially bradycardic; however, she was not symptomatic and her blood pressure remained above 100. Her urine output was good and she had no dizziness. She was kept on Tele just to keep an eye on her heart rate. She did extremely well with physical therapy. She was able to ambulate up and down the stairs and down the hallway with good safety profile. She had excellent treatment with the pain medication. She was kept on DVT prophylaxis with SCDs, TEDs and Xarelto 10 mg p.o. daily. She will be discharged to home with outpatient physical therapy. She will follow up with me in 10-14 days as previously scheduled. Should she have any problems in the interim, she will notify me immediately. Cierra Tucker MD BA/Joseph /[id number] Electronically Signed By: CIERRA TUCKER MD 11/20/16 0723 PATIENT NAME: CHELO DICK DISCHARGE SUMMARY DATE OF : 46 PHYSICIAN: CIERRA TUCKER MD REPORT #: [id number] REPORT IS CONFIDENTIAL AND NOT TO BE RELEASED WITHOUT AUTHORIZATION
== END 2016-11-19 11:05 | disposition home or self-care (01) | DRG 470 ==
LOC: MS 11-16 05:35 → DSVR 11-16 05:35 → MS 11-16 06:45
PROVIDERS: ADMIT Specialist
PROC: 3E0T3CZ (ICD-10-PCS; 2016-11-16)
PROC: 0SRD0J9 Replacement of Left Knee Joint with Synthetic Substitute, Cemented, Open Approach (ICD-10-PCS; principal; 2016-11-16 06:45)
DX: M17.12 Unilateral primary osteoarthritis, left knee (principal); I10 Essential (primary) hypertension; G89.18 Other acute postprocedural pain; E11.9 Type 2 diabetes mellitus without complications; E78.5 Hyperlipidemia, unspecified; K74.60 Unspecified cirrhosis of liver; G89.29 Other chronic pain; R11.0 Nausea; M51.35 Other intervertebral disc degeneration, thoracolumbar region; R06.09 Other forms of dyspnea; F12.10 Cannabis abuse, uncomplicated; Z88.5 Allergy status to narcotic agent; Z88.6 Allergy status to analgesic agent
CPT/HCPCS: 01402; 36415; 64447; 64450; 71260; 76942; 80048; 84484; 85025; 85379; 93005; 93010; 94762; 97110; 97116; 97162; C1713; C1776; J0690; J1100; J1885; J2250; J2274; J2300; J2405; J2704; J2795; J3010; J7120; Q9967

== ENCOUNTER 2020-08-07 10:12 | Emergency (ER) | payer OTHER, MEDICARE ==
[~2020-08-07] VITALS: Ht 162.6 cm; Wt 95.2 kg
[~2020-08-07 10:12] MED LIST changes: +CEPHALEXIN250 MG PO; +DOCUSATE SODIU250 MG PO; +HYDROMORPHONE HC4 MG PO; +LISINOPRIL20 MG PO; +MIRALAX17 GM PO; +MULTIVITAMINS1 EAC7 PO; +ONDANSETRON HCL4 MG PO; +OXYBUTYNIN CHLOR5 M1 PO; +OXYBUTYNIN CHLOR5 MG PO
== END 2020-08-07 11:41 | disposition home or self-care (01) ==
LOC: ED 10:12
DX: S00.03XA Contusion of scalp, initial encounter (principal); W01.10XA Fall on same level from slipping, tripping and stumbling with subsequent striking against unspecified object, initial encounter; I10 Essential (primary) hypertension; E11.9 Type 2 diabetes mellitus without complications; E78.5 Hyperlipidemia, unspecified; Z88.8 Allergy status to other drugs, medicaments and biological substances; Z88.5 Allergy status to narcotic agent; Z79.899 Other long term (current) drug therapy
CPT/HCPCS: 70450; 99283-25

== ENCOUNTER 2020-08-10 05:50 | Emergency (ER) | payer MEDICARE, OTHER ==
[~2020-08-10] VITALS: Ht 162.6 cm; Wt 95.2 kg
--- OUTSIDE RECORDS SUMMARY | 2020-08-10 05:52 | XMS ---
PreManage Notification: ABDIRASHID DICK Security Meal Grinder Tender Events No recent Security Events currently on file CRITERIA MET - [facility] - 2 Visits in 30 Days CARE PROVIDERS There are no care providers on record at this time. Radha has no Care Guidelines for this patient. [facility] MO.) [facility] TOTAL 2 NOTE: Visits indicate total known visits. ED/UCC VISIT TRACKING (12 MO.) [facility] COMPLAINT: - POSSIBLE UTI 08/07/2020 10:14 [facility] [place] TYPE: Emergency COMPLAINT: - FELL, HEAD INJURY INPATIENT VISIT TRACKING (12 MO.) No inpatient visits to display in this time frame [id number]
[2020-08-10] MEDS ORDERED: CEPHALEXIN500 MG PO (06:18)
[2020-08-10] MEDS ORDERED: PYRIDIUM200 MG PO (06:18)
== END 2020-08-10 06:27 | disposition home or self-care (01) ==
LOC: ED 05:50
DX: N39.0 Urinary tract infection, site not specified (principal); I10 Essential (primary) hypertension; E11.9 Type 2 diabetes mellitus without complications; E78.5 Hyperlipidemia, unspecified; Z88.8 Allergy status to other drugs, medicaments and biological substances; Z88.5 Allergy status to narcotic agent; Z79.899 Other long term (current) drug therapy
CPT/HCPCS: 81001; 99283

== ENCOUNTER 2022-02-25 18:33 | Emergency (ER) | payer MEDICARE, OTHER ==
[~2022-02-25] VITALS: Ht 162.6 cm; Wt 84.5 kg
[~2022-02-25 18:33] MED LIST changes: +CEPHALEXIN500 MG PO
[2022-02-25] MEDS ORDERED: MIRALAX17 GM PO (23:32)
[2022-02-25] MEDS ORDERED: ANTI-GAS180 MG PO (23:32)
== END 2022-02-25 23:46 | disposition home or self-care (01) ==
LOC: ED 18:33
DX: D69.49 Other primary thrombocytopenia (principal); T50.905A Adverse effect of unspecified drugs, medicaments and biological substances, initial encounter; K59.00 Constipation, unspecified; R14.0 Abdominal distension (gaseous); I10 Essential (primary) hypertension; C22.9 Malignant neoplasm of liver, not specified as primary or secondary; Z88.6 Allergy status to analgesic agent; Z88.5 Allergy status to narcotic agent; Z79.899 Other long term (current) drug therapy
CPT/HCPCS: 36415; 74018; 80053; 82977; 84443; 85025; 85060; 85610

== ENCOUNTER 2022-08-02 15:03 | Emergency (ER) | payer MEDICARE, OTHER ==
[~2022-08-02] VITALS: Ht 160 cm; Wt 80.3 kg
[~2022-08-02 15:03] MED LIST changes: +ANTI-GAS180 MG PO
[2022-08-02] MEDS ORDERED: SORAFENIB200 MG PO (16:37)
[2022-08-02] MEDS ORDERED: XIFAXAN550 MG PO (16:37)
[2022-08-02] MEDS ORDERED: FUROSEMIDE40 MG PO (16:37)
[2022-08-02] MEDS ORDERED: SPIRONOLACTONE25 MG PO (16:37)
[2022-08-02 19:36] VITALS: BP 102/68
== END 2022-08-02 19:37 | disposition home or self-care (01) ==
LOC: ED 15:03
DX: R18.8 Other ascites (principal); I10 Essential (primary) hypertension; E78.5 Hyperlipidemia, unspecified; Z88.8 Allergy status to other drugs, medicaments and biological substances; Z88.5 Allergy status to narcotic agent; Z79.899 Other long term (current) drug therapy
CPT/HCPCS: 36415; 49083; 80053; 85025; 85060; 85610; 99284-25; P9047

== ENCOUNTER 2022-09-15 07:29 | Day surgery (SDC) | payer MEDICARE, OTHER ==
[~2022-09-15] VITALS: Ht 162.6 cm; Wt 77.1 kg
--- NOTE | ~2022-09-15 | OR ---
[facility] [address] [place], [place] [address] Draft DATE OF OPERATION: 09/15/2022 SURGEON: Deandre Kiran MD PREOPERATIVE DIAGNOSES: 1. Intractable malignant ascites. 2. Underlying cirrhosis of liver (nonalcoholic fatty liver disease related) and hepatocellular carcinoma. POSTOPERATIVE DIAGNOSES: 1. Intractable malignant ascites. 2. Underlying cirrhosis of liver (nonalcoholic fatty liver disease related) and hepatocellular carcinoma. PROCEDURES: 1. Ultrasound abdominal evaluation with placement of wire. 2. Placement of tunneled peritoneal catheter for peritoneal fluid drainage (PleurX catheter device). 3. Limited drainage of abdominal ascites (500 mL). INDICATION: This 72-year-old woman is a patient of Dr. Britt at [facility]. She has been referred for a tunneled peritoneal catheter for her intractable ascites, anticipating hospice admission in the near future. The patient was last seen by me in 2014 at which time, she underwent laparoscopic appendectomy. She was noted to have cirrhotic changes of the liver at that time. She was ultimately found to have cirrhosis related to nonalcoholic fatty liver disease. Over time, she ultimately developed a neoplasm of the liver and was referred to [facility]. She has seen Dr. Cee medical oncologist and findings showed disseminated disease including pulmonary nodules, portal hypertension, and a mass in segment 2 and 3 of the liver with left portal vein tumor as well. She had no evidence of bony metastasis. She has had chemotherapy of variable benefit. She has undergone large volume paracentesis by the radiology department from time to time. She is admitted at this time to undergo placement of a permanent tunneled peritoneal catheter to allow for palliative ascites drainage as necessary. A PleurX catheter is anticipated. PATIENT NAME: ABDIRASHID DICK OPERATIVE REPORT DATE OF : 46 REPORT #: [id number] PHYSICIAN: DEANDRE KIRAN MD PCP: NGA BRITT MD REPORT IS CONFIDENTIAL AND NOT TO BE RELEASED WITHOUT AUTHORIZATION [facility] [address] [place], [place] [address] Draft The patient and her daughter understand the risk of bleeding, infection, malposition of the catheter and other unforeseen complications related to its placement and maintenance. Understanding this, they wished to proceed. FINDINGS: The patient had undergone paracentesis on (today is Wednesday), though her ascites was not as profound as usual. Ultrasound guidance to guide safe placement into the peritoneal cavity was used and was beneficial. Ultimately, she was noted to have clear yellow ascites type fluid of approximately 500 mL of which was drained. The catheter is on the right side of the abdomen and is affirmed to be in good position and working well. DESCRIPTION OF PROCEDURE: The patient was brought to the operating room, placed in supine position, and given a general endotracheal anesthetic to protect her airway dominantly. Consideration had been made for local with intravenous sedation as an approach. She did receive preoperative antibiotic Ancef. The abdomen was prepared with a chlorhexidine solution and draped sterilely. Evaluation of the abdominal cavity with a SonREM ENTERPRISE ultrasound device with a sterile cover over the probe affirmed an area in the right upper abdomen most appropriate for access. Under direct visualization, local anesthetic 1% lidocaine was injected. The peritoneal cavity was entered with the enclosed catheter device (angiocatheter over needle) in the PleurX catheter kit. Egress of clear ascites fluid was noted. A flexible J-wire was passed down the angiocatheter after removal of the needle. The angiocatheter was then removed. The site was incised about 1 cm. The ultrasound confirmed that the wire was in the peritoneal cavity. Subcutaneous tissue was infiltrated with lidocaine anesthetic and a transverse incision was made about 8 cm inferiorly to this site. Using the tunneling device, the multi fenestrated peritoneal catheter was drawn through the subcutaneous space exiting through the upper incision with a felt cuff about a cm inside the transverse incision inferiorly. The dilator and subsequently the dilator and peel-away introducer was then passed over the wire with all due care, ultimately removing the wire and the dilator. Egress of ascites fluid was noted from this area as expected. The catheter was then inserted into the peel-away introducer and the introducer removed stabilizing the catheter throughout the course of the maneuver. The catheter was then manipulated into good position without sign of kink or other problem. There was no significant ascites or leak at the site. PATIENT NAME: ABDIRASHID DICK OPERATIVE REPORT DATE OF : 46 REPORT #: [id number] PHYSICIAN: DEANDRE KIRAN MD PCP: NGA BRITT MD REPORT IS CONFIDENTIAL AND NOT TO BE RELEASED WITHOUT AUTHORIZATION [facility] [address] [place], [place] [address] Draft Using the enclosed specialized connector, the catheter was then aspirated and attached to tubing allowing for drainage. Manipulation of the abdominal cavity allowed for egress of about 500 mL of clear ascites fluid. Incision superiorly was reapproximated with interrupted 3-0 Vicryl and later an Acticoat dressing applied. The exit site of the catheter inferiorly was secured to the skin with a 3-0 nylon suture and closed the dressing. The additional tubing was flushed to be saved for later and the cap applied to the catheter itself as appropriate. The patient tolerated the procedure well, was ultimately extubated and taken to the recovery room in good condition. BLOOD LOSS: Minimal. COMPLICATIONS: None. MD ROSALBA Figueroa/VICKIL /[id number] cc: MD Yunior Madrid MD Copies: NGA BRITT MD, ROBERT C MD ~ PATIENT NAME: ABDIRASHID DICK OPERATIVE REPORT DATE OF : 46 REPORT #: [id number] PHYSICIAN: DEANDRE KIRAN MD PCP: NGA BRITT MD REPORT IS CONFIDENTIAL AND NOT TO BE RELEASED WITHOUT AUTHORIZATION
--- NOTE | ~2022-09-15 | EKG ---
[facility] [address] [facility] [place], [place] [address] Draft EK completed, results pending confirmation PATIENT NAME: ABDIRASHID DICK LACEY Electrocardiogram DATE OF : 46 PHYSICIAN: PRELIMINARY REPORT #: [id number] REPORT IS CONFIDENTIAL AND NOT TO BE RELEASED WITHOUT AUTHORIZATION
[~2022-09-15 07:29] MED LIST changes: +DILAUDID2 MG PO; +FUROSEMIDE40 MG PO; +SORAFENIB200 MG PO; +SPIRONOLACTONE25 MG PO; +XIFAXAN550 MG PO
[2022-09-15 07:54] VITALS: BP 89/65
[2022-09-15] MEDS ORDERED: FUROSEMIDE20 MG PO (08:02)
--- NOTE | 2022-09-15 11:05 | NUR ---
PT IN ROOM, STATES NO NEEDS OR QUESTIONS AT THIS TIME. WARM BLANKET PROVIDED AND BARE HUGGER IN USE, PT APPEARS COMFORTABLE AT THIS TIME. LR INFUSING DIRECTED INTO LFT WRIST (WNL). ANESTHESIA AND LAB HAVE BEEN IN AND OUT OF ROOM REGARDING HEMOLYZING OF LAB SAMPLES (X4).
--- NOTE | 2022-09-15 12:57 | NUR ---
09/15/22 1257 Sheets,Cherrie 1230 PT ARRIVED TO PACU WITH 10L VIA MASK, PT ASLEEP AND RESP EVEN AND UNLABORED BUT SHALLOW. 1234 PT WOKE TO TACTILE STIMULI AND O2 REMOVED. PT EASILY FALLS BACK TO SLEEP. 1254 PT WAKES OFF AND ON TO VERBAL STIMULI AND IS ENCOURAGED TO DEEP BREATHE. PT VERY DRWOSY AND NC WITH C02 PLACED. O2 SAT LOW 90S.
[2022-09-15] MEDS ORDERED: OXYCODONE HCL5 MG PO (13:05)
--- NOTE | 2022-09-15 13:15 | NUR ---
PT ARRIVED TO UNIT VIA STRETCHER FROM PACU. REPORT RECEIVED FROM REGINA ROSEN. PT REPORTS NO PAIN OR NAUSEA AT THIS TIME. RUQ DRESSING AND RLQ DRESSING HAS SMALL AMOUNT OF SS DRAINAGE, CATHETER IS INTACT AT THIS TIME. VS TAKEN, PT IS ON RA WITH O2 SATS VIA PULSE OX AT 94% AT THIS TIME. PT RESTING IN BED WITH CALL LIGHT WITHIN REACH AND NO FURTHER NEEDS AT THIS TIME. JELLO AND ICE WATER PROVIDED. DAUGHTER CALLED AND UPDATED.
[2022-09-15 13:18] VITALS: BP 82/52
[2022-09-15 14:09] VITALS: BP 113/66
--- NOTE | 2022-09-15 14:10 | NUR ---
IN PT ROOM FOR ASSESSMENT AND VS. PT REPORTS NO PAIN OR NAUSEA AT THIS TIME. RUQ DRESSING AND RLQ DRESSING HAS SMALL AMOUNT OF SS DRAINAGE BUT NO NEW SHADOWING, CATHETER IS IN PLACE. PT TOLERATED JELLO AND ICE WATER WITHOUT DIFFICULTY. PT TO BATHROOM VIA WC WITH 1PA, URINE VOID 50 ML AND SMALL AMOUNT OF SS DRAINAGE IN TOILET FROM ACTIVE HEMMORHOIDS PER PT AND PT DAUGHTER. PT NOW BACK IN BED AND PT DAUGHTER IN ROOM TO ASSIST WITH GETTING DRESSED. CALL LIGHT WITHIN REACH, NO FURTHER NEEDS AT THIS TIME.
--- NOTE | 2022-09-15 14:40 | NUR ---
DISCHARGE EDUCATION GIVEN TO PT AND PT DAUGHTER. PT DAUGHTER STATES HOSPICE CARE WILL BE ARRANGED NOW THAT CATHETER IS IN PLACE AND THAT IS WHO WILL BE PERFORMING DRESSING CHANGES AND PRN DRAINAGE. PT DAUGHTER AND PT STATE NO FURTHER QUESTIONS OR NEEDS AT THIS TIME, ALL QUESTIONS ANSWERED. IV DC'ED BY THIS RN, SALENA, CATHETER TIP INTACT, GAUZE/COBAN IN PLACE. PT REPORTS PAIN REMAINS 0/10 AND NO NAUSEA PRESENT. PT ESCORTED OFF OF UNIT VIA WC TO PASSENGER SIDE OF DAUGHTERS VEHICLE. ALL BELONGINGS IN PT POSSESSION. NO FURTHER NEEDS AT THIS TIME.
== END 2022-09-15 14:45 | disposition home or self-care (01) ==
LOC: DS 07:29
PROVIDERS: ATTEND Surgery
PROC: 0WHG33Z Insertion of Infusion Device into Peritoneal Cavity, Percutaneous Approach (ICD-10-PCS; principal; 2022-09-15 09:00)
DX: C22.0 Liver cell carcinoma (principal); R18.0 Malignant ascites; K72.10 Chronic hepatic failure without coma; K74.60 Unspecified cirrhosis of liver; K76.0 Fatty (change of) liver, not elsewhere classified
CPT/HCPCS: 36415; 71045; 80048; 80053; 85025; 85610; 93005; 93010; J0690; J1100; J2405; J2765; J3490; J7121

== ENCOUNTER 2022-09-16 01:14 | Emergency (ER) | payer MEDICARE, OTHER ==
[~2022-09-16] VITALS: Ht 162.6 cm; Wt 66.0 kg
[~2022-09-16 01:14] MED LIST changes: +FUROSEMIDE20 MG PO
--- OUTSIDE RECORDS SUMMARY | 2022-09-16 01:16 | XMS ---
PreManage Notification: ABDIRASHID DICK Security Administration Professional Events No recent Security Events currently on file CRITERIA MET - [facility] CARE PROVIDERS [facility] 08/12/2020-[facility] PHONE: [phone] Radha has no Care Guidelines for this patient. Care History Medical/Surgical 08/12/2020 [facility] - PATIENT IS [facility] ELIGIBLE, \T\middot;\T\nbsp; PLEASE REFER PATIENT TO [facility] FOR NON EMERGENT MEDICAL NEEDS. \T\middot;\T\nbsp; [facility] CAN SEE PATIENTS SAME DAY FOR APTS IF PATIENT CALLS FIRST THING IN THE MORNING. E.D. VISIT COUNT (12 MO.) [address] [place] [address] TOTAL 5 NOTE: Visits indicate total known visits. ED/UCC VISIT TRACKING (12 MO.) 09/16/2022 01:14 [facility] [place] TYPE: Emergency COMPLAINT: - POST OP ISSUES 08/13/2022 09:40 [facility] [place] TYPE: Emergency COMPLAINT: - WEAKNESS, NAUSEA, SHAKY, UNCOMFORTABLE, SLEEPLESS DIAGNOSES: - Adverse effect of antineoplastic and immunosuppressive drugs, initial encounter - Allergy status to narcotic agent - Allergy status to other drugs, medicaments and biological substances - Essential (primary) hypertension - Malignant neoplasm of liver, not specified as primary or secondary - Other supervisor intermediates (current) drug therapy - Weakness 08/07/2022 18:52 [facility] [place] TYPE: Emergency COMPLAINT: - ABD PAIN DIAGNOSES: - Allergy status to analgesic agent - Allergy status to narcotic agent - Allergy status to other drugs, medicaments and biological substances - Essential (primary) hypertension - Other supervisor intermediates (current) drug therapy - Unspecified abdominal pain 08/02/2022 15:04 [facility] [place] [facility] [place] TYPE: Emergency COMPLAINT: - SOB,ABD PAIN,UPPER THIGH PAIN DIAGNOSES: - Allergy status to narcotic agent - Allergy status to other drugs, medicaments and biological substances - Essential (primary) hypertension - Hyperlipidemia, unspecified - Other ascites - Other prison (current) drug therapy 02/25/2022 18:[address] [facility] [address] [facility] [place] TYPE: Emergency COMPLAINT: - LOWER LEG PAIN/SWELLING DIAGNOSES: - Abdominal distension (gaseous) - Adverse effect of unspecified drugs, medicaments and biological substances, initial encounter - Allergy status to analgesic agent - Allergy status to narcotic agent - Constipation, unspecified - Essential (primary) hypertension - Malignant neoplasm of liver, not specified as primary or secondary - Other supervisor intermediates (current) drug therapy - Other primary thrombocytopenia INPATIENT VISIT TRACKING (12 MO.) No inpatient visits to display in this time frame [email or web address]
[2022-09-16 02:26] VITALS: BP 102/68
== END 2022-09-16 02:28 | disposition home or self-care (01) ==
LOC: ED 01:14
DX: R18.8 Other ascites (principal); I10 Essential (primary) hypertension; E78.5 Hyperlipidemia, unspecified; Z88.8 Allergy status to other drugs, medicaments and biological substances; Z88.5 Allergy status to narcotic agent; Z79.899 Other long term (current) drug therapy
CPT/HCPCS: 99283